=== PATIENT | male | born 1990 | race Caucasian/White ===

== ENCOUNTER 2021-11-03 05:42 | Emergency (ER) | payer OTHER ==
[~2021-11-03] VITALS: Ht 180.3 cm; Wt 80.7 kg
[2021-11-03] MEDS ORDERED: PRED20 PO (06:29)
== END 2021-11-03 06:39 | disposition home or self-care (01) ==
LOC: ER 05:42
DX: L23.7 Allergic contact dermatitis due to plants, except food (principal); F17.200 Nicotine dependence, unspecified, uncomplicated
CPT/HCPCS: J7512